=== PATIENT | male | born 1965 | race Native Hawaiian/Other Pacific Islander ===

== ENCOUNTER 2016-08-19 20:39 | Emergency (ER) | payer OTHER ==
[~2016-08-19] VITALS: Ht 198.1 cm; Wt 127.0 kg
== END 2016-08-19 23:10 | disposition home or self-care (01) ==
LOC: ED 20:39
PROC: 0HQ1XZZ Repair Face Skin, External Approach (ICD-10-PCS; principal; 2016-08-19)
DX: S01.81XA Laceration without foreign body of other part of head, initial encounter (principal); S00.83XA Contusion of other part of head, initial encounter; W22.8XXA Striking against or struck by other objects, initial encounter
CPT/HCPCS: 96372; 99283; J1885

== ENCOUNTER 2021-08-22 16:42 | Outpatient (CLI) | payer OTHER | END 2021-08-22 19:19 | disposition home or self-care (01) | LOC: RAD 16:42 | PROVIDERS: ATTEND Internal Medicine | DX: S90.121A Contusion of right lesser toe(s) without damage to nail, initial encounter (principal); Y92.9 Unspecified place or not applicable ==

== ENCOUNTER 2022-10-13 16:09 | Outpatient (CLI) | payer OTHER | END 2022-10-13 19:00 | disposition home or self-care (01) | LOC: CT 16:09 | PROVIDERS: ATTEND Internal Medicine | DX: R51.9 Headache, unspecified (principal) ==

== ENCOUNTER 2022-10-16 08:31 | Outpatient (CLI) | payer OTHER | END 2022-10-16 18:56 | disposition home or self-care (01) | LOC: MRI 08:31 | PROVIDERS: ATTEND Internal Medicine | DX: R51.9 Headache, unspecified (principal) | CPT/HCPCS: 36415; 82565; 84520; A9576 ==